=== PATIENT | female | born 1965 | race Caucasian/White ===

== ENCOUNTER 2016-11-02 08:31 | Day surgery (SDC) | END 2016-11-02 14:10 | disposition home or self-care (01) | DX: K40.91 Unilateral inguinal hernia, without obstruction or gangrene, recurrent (principal); E03.9 Hypothyroidism, unspecified | CPT/HCPCS: 49651; 71010; 80048; 84703; 85025; 85610; 85730; J0330; J0690; J1100; J1170; J2175; J2250; J2405; J2710; J3010; Z7512; Z7610 ==

== ENCOUNTER 2017-02-10 08:04 | Day surgery (SDC) | payer OTHER ==
[~2017-02-10] VITALS: Ht 160 cm; Wt 66.7 kg
[~2017-02-10 08:04] MED LIST: ALBU18HF INHALATION; BECL8.7A INH; FLUN8.9H INH; LEVO25TA53 PO; [UNRECOGNIZED DRUG - OTHER]
[2017-02-10 09:09] VITALS: Ht 160 cm; Wt 66.7 kg
[2017-02-10] MEDS ORDERED: LIDOCAINE 2% (SDV) 5 ML INJ ONE (09:37)
[2017-02-10] MEDS ORDERED: PROPOFOL 40 ML ONE (09:37)
[2017-02-10 09:38] VITALS: BP 133/71; PULSE 54; RESP 23
[2017-02-10 10:29] VITALS: BP 137/60; PULSE 48; RESP 20
--- NOTE | 2017-02-10 10:51 | GILP ---
DATE OF PROCEDURE: NAME OF PROCEDURES: Colonoscopy and biopsy. SURGEON: José Miguel Canchola MD PREOPERATIVE DIAGNOSIS: Abdominal pain. POSTOPERATIVE DIAGNOSES 1. Colonoscopy all the way to the cecum. 2. Diverticulosis of the colon. 3. Angiodysplastic lesions in the right colon. 4. Nonspecific colitis and biopsies were taken for histopathology. 5. Internal hemorrhoids. INDICATION FOR THE PROCEDURE: Ms. Romeo Zamudio is a 51-year-old female patient who had lower abdo vishnu pain. Patient went to the emergency room and abdominal CT scan was suspicious for colitis. T he patient was scheduled for colonoscopy for further evaluation. The procedure and possible complications are well explained to the patient, she understood and conse nted to the procedure. DESCRIPTION OF PROCEDURE: Under the influence of anesthesia, the colonoscope was carefully introduc ed in the rectum and under direct vision, it was advanced all the way to the cecum. FINDINGS: The patient had angiodysplastic lesions in the right colon. She had nonspecific colitis and biopsies were taken for histopathology. She was noted to have diverticulosis of the colon and i nternal hemorrhoids. She tolerated the procedure very well and there was no complication from the procedure. At the end of the procedure, she was awake with stable vital signs and she was discharged home to the care of h family. IMPRESSION: Please see postoperative diagnosis. PLAN: 1. Bentyl 10 mg p.o. t.i.d. p.r.n. for pain. 2. High fiber diet. 3. Await histopathology report. Dictated By: JOSÉ MIGUEL ROLDAN/SENDY Conf#: [id number] DID#: [id number]
== END 2017-02-10 13:45 | disposition home or self-care (01) ==
LOC: GIL 08:04
PROVIDERS: ATTEND Internal Medicine Gastroenterology
DX: R19.4 Change in bowel habit (principal); K57.90 Diverticulosis of intestine, part unspecified, without perforation or abscess without bleeding; K64.8 Other hemorrhoids; J45.909 Unspecified asthma, uncomplicated
CPT/HCPCS: 45380; 88305; Z7610